=== PATIENT | male | born 1970 | race Caucasian/White ===

== ENCOUNTER 2023-06-20 08:33 | Outpatient (REF) | payer BC, SELFPAY ==
[2023-06-20 16:01] LABS: Cholesterol 380 mg/dL (<200); Glucose Fasting 85 mg/dL (60-99); HDL Cholesterol 38 mg/dL (>40); LDL Cholesterol Calculated 270 mg/dL (<100); Triglycerides 364 mg/dL (<150)
[2023-06-20 16:36] LABS: Estimated Average Glucose 108 mg/dL; Hemoglobin A1c % 5.4 % (<6.0)
== END 2023-06-20 08:34 | disposition home or self-care (01) ==
LOC: HO.CHCLDS 08:33
PROVIDERS: Visit Provider Internal Medicine
DX: I10 Essential (primary) hypertension (principal); R73.9 Hyperglycemia, unspecified
CPT/HCPCS: 36415; 80061; 82947; 83036

== ENCOUNTER 2024-07-09 08:50 | Outpatient (REF) | payer BC, SELFPAY ==
[2024-07-09 14:32] LABS: Basophils Absolute Auto 0.1 X10*3/uL (0.0-0.2); PLT CLUMP 1; Red Cell Distribution Width 13.2 % (11.0-16.0); SCAN SMEAR FLAG 1
[2024-07-09 14:34] LABS: Basophils Percent Auto 1.3 % (0-2); Eosinophils Absolute Auto 0.3 X10*3/uL (0.0-0.4); Eosinophils Percent Auto 4.6 % (0-4); Hematocrit 46.3 % (42.0-52.0); Hemoglobin 15.5 g/dl (14.0-18.0); Imm Gran Abs Auto 0.03 X10*3/uL (0.00-0.03); Imm Gran Pct Auto 0.4 % (0.0-0.4); Lymphocytes Absolute Auto 1.5 X10*3/uL (1.2-4.9); Lymphocytes Percent Auto 21.5 % (20-40); MANUAL DIFF FLAG SCAN; Mean Corpuscular HGB Conc 33.5 g/dl (31.0-36.0); Mean Corpuscular Hemoglobin 27.5 pg (27.0-33.0); Mean Corpuscular Volume 82.1 fL (80.0-98.0); Monocytes Absolute Auto 0.6 X10*3/uL (0.1-1.2); Monocytes Percent Auto 9.5 % (2-11); Neutrophils Absolute Auto 4.2 x10*3/uL (2.0-8.3); Neutrophils Percent Auto 62.7 % (45-73); Red Blood Count 5.64 X10*6/uL (4.60-5.80)
[2024-07-09 14:39] LABS: Mean Platelet Volume 9.9 fL (9.4-12.4); Platelet Count 239 X10*3/uL (160-400); White Blood Count 6.7 X10*3/uL (4.8-10.8)
[2024-07-09 14:44] LABS: Alanine Aminotransferase 21 U/L (0-40); Albumin Level 4.2 g/dL (3.5-5.0); Alkaline Phosphatase 66 U/L (39-117); Anion Gap 17 (12-20); Aspartate Amino Transferase 19 U/L (5-37); Bilirubin Total 0.5 mg/dL (0.0-1.0); Blood Urea Nitrogen 16 mg/dL (9-16); Calcium 9.6 mg/dL (8.4-10.2); Carbon Dioxide 23 mmol/L (22-29); Chloride 100 mmol/L (96-108); Cholesterol 488 mg/dL (<200); Estimated Glomerular Filt Rate > 60; Glucose Random 87 mg/dL (60-115); HDL Cholesterol 37 mg/dL (>40); Potassium 3.7 mmol/L (3.3-5.1); Sodium 136 mmol/L (135-145); Total Protein 7.4 g/dL (6.5-8.0); Triglycerides 718 mg/dL (<150)
[2024-07-09 15:00] LABS: TSH reflex Free T4 1.17 uIU/mL (0.32-4.0)
[2024-07-09 15:56] LABS: SLIDE REVIEW VERIFIED
[2024-07-10 07:25] LABS: HIV AB/AG Nonreactive (Nonreactive); HIV Num 1 0.04 S/CO (0.00-0.99); ~Hepatitis C Antibody Nonreactive (Nonreactive)
== END 2024-07-09 08:51 | disposition home or self-care (01) ==
LOC: HO.CHCLDS 08:50
PROVIDERS: Visit Provider Internal Medicine
DX: Z00.00 Encounter for general adult medical examination without abnormal findings (principal); Z11.4 Encounter for screening for human immunodeficiency virus [HIV]; E78.00 Pure hypercholesterolemia, unspecified
CPT/HCPCS: 36415; 80053; 80061; 84443; 85025; 86803; 87389

== ENCOUNTER 2025-10-20 10:12 | Outpatient (REF) | payer BC, SELFPAY ==
--- NOTE | ~2025-10-20 | XR_ITS ---
EXAMINATION: XR CHEST CLINICAL INFORMATION: pt w COPD excerbation , fever to r/o PNA COMPARISON: None available. TECHNIQUE: 2 views of the chest were obtained. FINDINGS: The cardiac, hilar, and mediastinal contours are normal. Lungs are diffusely hyperaerated with flattening of the hemidiaphragms. Lungs otherwise clear without focal opacification. There is no pneumothorax or pleural effusion. There is no focal osseous or soft tissue abnormality. Mild arthritic changes throughout the spine. XR/XR chest 2V IMPRESSION: 1. COPD without superimposed active disease. Electronically signed by: Mat Awad MD 10/20/2025 10:33 AM [facility]
--- OUTSIDE RECORDS SUMMARY | 2025-10-20 09:40 | XMS_ITS | Encounter Summary ---
Author Organization [employer] Address [address] [place] [address] [place] [address] Care Team Providers Care Bell Valet Name Role Phone Daryl Mayberry MD Primary Care Provider [phone] Reason for Visit * Reason Comments Cough Shortness of Breath Encounter Details Date Type Department Care Team ([facility] st Contact Info) Description 10/20/2025 9:40 AM EST Office Visit [facility] [address] [place] [phone] Keily Locke MD [address] [place] [address] Primary hypertension (Primary Dx); Decompensated COPD with exacerbation (chronic obstructive pulmonary disease) ([facility]) ([facility]); Decompensated COPD with exacerbation (chronic obstructive pulmonary disease) ([facility]) ([facility]); Moderate persistent asthma without complication; COPD exacerbation ([facility]) ([facility]) Social History Tobacco Use Types Packs/Day Years Used Date Smoking Tobacco: Former Cigarettes Smokeless Tobacco: Current Chew Tobacco Cessation:Ready to Q uit: Not Asked; Counseling Given: Not Answered Alcohol Use Standard Drinks/Week Comments Not Currently 0 (1 standard drink = 0.6 oz pur e alcohol) Depression Answer Date Recorded Patient Health Questionnaire-9 Score 15 07/17/2025 Patient Health Questionnaire-9 Score 15 07/17/2025 Last PHQ-9: Questionnaire Data Not on file 0 07/17/2025 Housing Stability Answer Date Recorded What is your housing situation today? I have maikel leyva 02/20/[address] you li ve. Do you have problems with any of the following? None of the above 02/20/2025 Food Insecurity Answer Date Recorded Within the past 12 months, y ou worried that your food would run out before you got money to buy more: Never True 02/20/2025 Within the past 12 months,th e food you bought just didn't last and you didn't have enough money to get more: Never True 11/2024 Transportation Answer Date Recorded In the past 12 months, has l ack of transportation kept you from medical appts, meetings, work or from getting things needed for daily living? No 02/20/2025 Utilities Answer Date Recorded In the past 12 months, has t he electric, gas, oil or water company threatened to shut off services in your home? No 02/20/2025 Depression Answer Date Recorded Patient Health Questionnaire-2 Score 5 07/17/2025 Internet Access Answer Date Recorded Internet Access Q1 Yes 02/20/2025 Internet Access Q2 Not on file 02/20/2025 Sex and Gender Information Value Date Recorded Sex Assigned at Male 08/21/2022 10:16 AM EDT Legal Sex Male 10:16 AM EDT Gender Identity Male 08/21/2022 10:16 AM EDT Sexual Orientation Straight 08/21/2022 10 :16 AM EDT documented as of this encounter Last Filed Vital Signs Vital Sign Reading Time Taken Comments Blood Pressure 161/95 10/20/2025 9:15 AM EST Pulse 86 10/20/2025 9:15 AM EST Temperature 36.6 C (97.8 F) 10/20/2025 9:15 AM EST Respiratory Rate 20 10/20/2025 9:15 AM EST Oxygen Saturation 95% 10/20/2025 9:15 AM EST Inhaled Oxygen Concentration - - Weight 120 kg (264 lb 3.2 oz) 10/20/2025 9:15 AM EST Height 180.3 cm (5' 11 ) 10/20/2025 9:15 AM EST Body Mass Index 36.85 10/20/2025 9:15 AM EST documented in this encounter Progress Notes * Keily Hyman MD - 10/20/2025 9:40 AM EST Subjective Patient ID: Eduardo Pedroza is a 55 y.o. male who presents for Cough and Shortness of Breath. HPI 55 y o M w PMX of Hypertension, Obesity,COPD/Asthma Comes to [facility] reporting SOB,wheezing for 1 day - Baseline lung function reported as good for past 1-2 months prior to current episode - Chronic cough with usual clear or white sputum; change to brown sputum starting October 19, 2025(Sunday night) so 1 day ago - Wheezing started several days prior to encounter -recalls had 101??F; fever also present last night; denies fever during daytime yesterday and this morning - Chills reported with fever - Shortness of breath, wheezing - Chest pain associated with coughing only - pt using Nebulizer (DuoNeb) PRN albuterol pump used outside as needed+ Combivent inhaler prescribed for 4 times daily, but only used twice daily due to cost concerns - No tobacco use for years Review of Systems -wheezing ,SOB ,change in sputum, fever Objective BP (!) 161/95 (BP Location: Left arm, Patient Position: Sitting, BP Cuff Size: Large adult long) Pulse 86 Temp 97.8 ??F (36.6 ??C) (Oral) Resp 20 Ht 5' 11 (1.803 m) Wt 264 lb 3.2 oz (120 kg) SpO2 95% BMI 36.85 kg/m?? Physical Exam Constitutional: General: He is not in acute distress. Appearance: Normal appearance. He is obese. He is not ill-appearing, toxic- appearing or diaphoretic. HENT: Head: Normocephalic. Mouth/Throat: Mouth: Mucous membranes are moist. Pharynx: No oropharyngeal exudate or posterior oropharyngeal erythema. Eyes: Pupils: Pupils are equal, round, and reactive to light. Cardiovascular: Rate and Rhythm: Normal rate and regular rhythm. Pulmonary: Effort: Pulmonary effort is normal. Breath sounds: No wheezing or rhonchi. Abdominal: Palpations: Abdomen is soft. Musculoskeletal: Right lower leg: No edema. Left lower leg: No edema. Neurological: General: No focal deficit present. Mental Status: He is alert. Assessment/Plan Problem List Items Addressed This Visit COPD exacerbation ([facility]) ([facility]) Symptoms seems from decompensated COPD with exacerbation likely triggered by viral infection. Here Influenza nd COVID19 test: negative -chest x-ray ordered - Prescribed azithromycin 500 mg x1 then 250 mg daily x 5 days for COPD exacerbation and antiinflammatory component -prednisone 40 mg for 5 days) -possible pt not on easier antimuscarinic regimen as umeclidinium because of cost ? -Recommended use of Combivent inhaler as prescribed, 4 times daily.pt taking BID - Continue DuoNeb nebulizations and albuterol as needed. -Provided information # and previous order done for PFT ; instructed to call and schedule apt - Advised to monitor for worsening symptoms, higher fevers, or increased dyspnea and to seek care if these occur. - Advised to discuss pulmonary referral with primary care provider if exacerbations persist Relevant Medications predniSONE (Deltasone) 20 MG tablet Primary hypertension - Primary BP to take lisinopril and HDCTZ when arrives at home ,not took today BP meds -F w PCP BP Other Visit Diagnoses Decompensated COPD with exacerbation (chronic obstructive pulmonary disease) ([facility]) ([facility]) Relevant Medications azithromycin (Zithromax) 250 MG tablet predniSONE (Deltasone) 20 MG tablet Other Relevant Orders Influenza A (ID NOW Rapid Molecular) (Completed) Influenza B (ID NOW Rapid Molecular) (Completed) POCT COVID-19 Ag Rangel ID NOW (Completed) XR Chest 2 Views (Completed) Decompensated COPD with exacerbation (chronic obstructive pulmonary disease) ([facility]) ([facility]) Standing order for prednisone in case of an exacerbation. Relevant Medications azithromycin (Zithromax) 250 MG tablet predniSONE (Deltasone) 20 MG tablet Other Relevant Orders Influenza A (ID NOW Rapid Molecular) (Completed) Influenza B (ID NOW Rapid Molecular) (Completed) POCT COVID-19 Ag Rangel ID NOW (Completed) XR Chest 2 Views (Completed) Moderate persistent asthma without complication No change in medication Contact the office as needed Relevant Medications azithromycin (Zithromax) 250 MG tablet predniSONE (Deltasone) 20 MG tablet This note was drafted using Ambient (AI) technology. The patient/patient's guardian has been informed and has consented to the use of this technology: Yes documented in this encounter Miscellaneous Notes * Assessment & Plan Note - Keily Hyman MD - 10/20/2025 12:35 PM ESTAssociated Problem(s): COPD exacerbation (CMS/HCC) ([facility]) Symptoms seems from decompensated COPD with exacerbation likely triggered by viral infection. Here Influenza nd COVID19 test: negative -chest x-ray ordered - Prescribed azithromycin 500 mg x1 then 250 mg daily x 5 days for COPD exacerbation and antiinflammatory component -prednisone 40 mg for 5 days) -possible pt not on easier antimuscarinic regimen as umeclidinium because of cost ? -Recommended use of Combivent inhaler as prescribed, 4 times daily.pt taking BID - Continue DuoNeb nebulizations and albuterol as needed. -Provided information # and previous order done for PFT ; instructed to call and schedule apt - Advised to monitor for worsening symptoms, higher fevers, or increased dyspnea and to seek care if these occur. - Advised to discuss pulmonary referral with primary care provider if exacerbations persist * Assessment & Plan Note - Keily Hyman MD - 10/20/2025 12:34 PM ESTAssociated Problem(s): Primary hypertension BP to take lisinopril and HDCTZ when arrives at home ,not took today BP meds -F w PCP BP documented in this encounter Plan of Treatment Not on file documented as of this encounter Procedures Procedure Name Priority Date/Time Associated Diagnosis Comments XR CHEST 2 VIEWS Routine 10/20/2025 10:2 8 AM EST Decompensated COPD with exacerbation (chronic obstructive pulmonary disease) ([facility]) ([facility]) POCT INFLUENZA B (ID NOW RAPID MOLECULAR) Routine 10/20/2025 10:03 AM EST Decompensated COPD with exacerbation (chronic obstructive pulmonary disease) ([facility]) ([facility]) POCT INFLUENZA A (ID NOW RAPID MOLECULAR) Routine 10/20/2025 10:03 AM EST Decompensated COPD with exacerbation (chronic obstructive pulmonary disease) ([facility]) ([facility]) POCT COVID-19 AG RANGEL ID NOW Routine 10/20/2025 10:03 AM EST Decompensated COPD with exacerbation (chronic obstructive pulmonary disease) ([facility]) ([facility]) documented in this encounter Results * XR Chest 2 Views (10/20/2025 10:28 AM EST) Anatomical Region Laterality Modality Chest Radiographic Jonelle ging 10/20/2025 10:2 8 AM EST Narrative 10/20/2025 10:35 AM EST [address] [address] XRay Report Signed Patient: Eduardo Pedroza MR#: [id number] : 1970 Acct:[id number] Age/Sex: 55 / M ADM Date: 10/20/25 Loc: HO.HHCX Attending Dr: Keily Hyamn MD Ordering Physician: Keily Locke MD Date of Service: 10/20/25 Procedure(s): XR chest 2V Accession Number(s): [id number] cc: Keily Locke MD Reason for Exam: pt w COPD excerbation , fever to r/o PNA EXAMINATION: XR CHEST CLINICAL INFORMATION: pt w COPD excerbation , fever to r/o PNA COMPARISON: None available. TECHNIQUE: 2 views of the chest were obtained. FINDINGS: The cardiac, hilar, and mediastinal contours are normal. Lungs are diffusely hyperaerated with flattening of the hemidiaphragms. Lungs otherwise clear without focal opacification. There is no pneumothorax or pleural effusion. There is no focal osseous or soft tissue abnormality. Mild arthritic changes throughout the spine. XR/XR chest 2V IMPRESSION: 1. COPD without superimposed active disease. Electronically signed by: Mat Awad MD 10/20/2025 10:33 AM EST Dictated By: Mat Awad MD Signed By: <Electronically signed by Mat Awad MD in OV> 10/20/25 1033 DD/ 1028 TD/TT: 10/20/25 1028 Stretcher Helper: Procedure Note Donotuseinterpreter, Image - 10/20/[address] [address] XRay Report Signed Patient: Eduardo Pedroza TMR#: [id number] : 1970Acct:[id number] Age/Sex: 55 / MADM Date: 10/20/25 Loc: HO.HHCX Attending Dr: Keily Hyman MD Ordering Physician: Keily Locke MD Date of Service: 10/20/25 Procedure(s): XR chest 2V Accession Number(s): [id number] cc: Keily Locke MD Reason for Exam: pt w COPD excerbation , fever to r/o PNA EXAMINATION: XR CHEST CLINICAL INFORMATION: pt w COPD excerbation , fever to r/o PNA COMPARISON: None available. TECHNIQUE: 2 views of the chest were obtained. FINDINGS: The cardiac, hilar, and mediastinal contours are normal. Lungs are diffusely hyperaerated with flattening of the hemidiaphragms. Lungs otherwise clear without focal opacification. There is no pneumothorax or pleural effusion. There is no focal osseous or soft tissue abnormality. Mild arthritic changes throughout the spine. XR/XR chest 2V IMPRESSION: 1. COPD without superimposed active disease. Electronically signed by: Mat Awad MD 10/20/2025 10:33 AM EST Dictated By: Mat Awad MD Signed By: <Electronically signed by Mat Awad MD in OV> 10/20/25 1033 DD/ 1028 TD/TT: 10/20/25 1028 Stretcher Helper: us Keily Hyman MD IMG XR PROCEDURES Final Result * POCT COVID-19 Ag Rangel ID NOW (10/20/2025 10:03 AM EST) Coronavirus Antigen PCR Negative Negative, Indeterminate, None Detected, Trace, 3+, Specimen unsatisfactory for evaluation, Weakly Positive, 1+, 2+ Swab 10/20/2025 10:0 3 AM EST Keily Hyman MD POINT OF CARE ANGUS T ENTER/EDIT ORDERABLES Final Result * Influenza B (ID NOW Rapid Molecular) (10/20/2025 10:03 AM EST) Influenza B Negative Negative, Indeterminate [facility] Swab 10/20/2025 10:0 3 AM EST Keily Hyman MD POINT OF CARE ANGUS T ENTER/EDIT ORDERABLES Final Result Performing Organization Address [facility]/ZIP Co de Phone Number [facility] [address] [place] [phone] * Influenza A (ID NOW Rapid Molecular) (10/20/2025 10:03 AM EST) Influenza A Negative Negative, Indeterminate [facility] Swab 10/20/2025 10:0 3 AM EST Keily Hyman MD POINT OF CARE ANGUS T ENTER/EDIT ORDERABLES Final Result Performing Organization Address [facility] Co de Phone Number [facility] [address] [place] [phone] documented in this encounter Visit Diagnoses Diagnosis Primary hypertension- Primary Unspecified essential hypertension Decompensated COPD with exacerbation (chronic obstructive pulmonary disease) ([facility]/HCC) (HCC) Moderate persistent asthma without complication COPD exacerbation ([facility]) ([facility]) Obstructive chronic bronchitis with exacerbation documented in this encounter Additional Health Concerns Assessment Noted Time PHQ-9 Depression Total Score: 15 025 9:43 AM EDT documented as of this encounter Care Teams Bell Valet Relationship Specialty Start Date End Date Daryl Mayberry MD [address] [place] [phone] PCP - General Internal Medicine 10/22/18 documented as of this encounter
--- OUTSIDE RECORDS SUMMARY | 2025-10-20 13:30 | XMS_ITS | Encounter Summary ---
Author Organization [employer] Address [address] [facility] 7 [place] [address] Care Team Providers Care Heavy Forger Name Role Phone Daryl Mayberry MD Primary Care Provider [phone] Reason for Visit * Reason Comments Med Refill Encounter Details Date Type Department Care Team ([facility] st Contact Info) Description 09/09/2025 Refill [facility] [address] [place], [place] [phone] Daryl Mayberry MD [address] [place] [address] Moderate persistent asthma without complication Social History Tobacco Use Types Packs/Day Years Used Date Smoking Tobacco: Former Cigarettes Smokeless Tobacco: Current Chew Alcohol Use Standard Drinks/Week Comments Not Currently [...] AM EDT documented as of this encounter Plan of Treatment Not on file documented as of this encounter Visit Diagnoses Diagnosis Moderate persistent asthma without complication documented in this encounter Additional Health Concerns Assessment Noted Time PHQ-9 Depression Total Score: 15 025 9:43 AM EDT documented as of this encounter Care Teams Heavy Forger Relationship Specialty Start Date End Date Daryl Mayberry MD [address] [place] [phone] PCP - General Internal Medicine 10/22/18 documented as of this encounter
--- OUTSIDE RECORDS SUMMARY | 2025-10-20 13:30 | XMS_ITS | Encounter Summary ---
Author Organization [employer] Address [address] [facility] [address] [place] [address] Care Team Providers Care Video Tape Duplicator Name Role Phone Daryl Mayberry MD Primary Care Provider [phone] Encounter Details Date Type Department Care Team (Latest Contact Info) Description 10/20/2025 Travel Social History Tobacco Use Types Packs/Day Years [...] documented as of this encounter Visit Diagnoses Not on filedocumented in this encounter Additional Health Concerns Assessment Noted Time PHQ-9 Depression Total Score: 15 025 9:43 AM EDT documented as of this encounter Care Teams Video Tape Duplicator Relationship Specialty Start Date End Date Daryl Mayberry MD [address] [place] [phone] PCP - General Internal Medicine 10/22/18 documented as of this encounter
--- OUTSIDE RECORDS SUMMARY | 2025-10-20 13:30 | XMS_ITS | Clinical Summary ---
Author Organization [employer] Address [address] [facility] 7[address] [place] [address] Care Team Providers Care Fiscal Agent Name Role Phone Daryl Mayberry MD Primary Care Provider [phone] Allergies Active Allergy Reactions Criticality Noted Date Comments Cat Dander Itching 05/28/2023 Marijuana (Cannabis Sativa) Itching 05/28/20 23 Medications Diclofenac Sodium 1 % gelIndications: Pain of right great toe To apply to the affected area 3 times a day 100 g 1 023 Active Additional Information Patient not taking.Reported on 10/20/2025 econazole nitrate 1 % creamIndication s:Intertrigo of web of toe APPLY TO THE AFFECTED AREA(S) EVERY MORNING 30 g 023 Active Additional Information Patient not taking.Reported on 10/20/2025 atorvastatin (Lipitor) 40 MG tabletIndicatio ns:Hypercholest erolemia Take 1 tablet (40 mg) by mouth Once per day. 30 tablet 11 024 Active Additional Information Patient not taking.Reported on 10/20/2025 guaiFENesin (Mucinex) 600 MG 12 hr tabletIndicatio ns:Decompensate d COPD with exacerbation (chronic obstructive pulmonary disease) ([facility]/HCC) (HCC) Take 2 tablets (1,200 mg) by mouth 2 times daily. Do not crush, chew, or split. 120 tablet 11 025 2025 Active hydroCHLOROthia zide (HYDRODiuril) 25 MG tabletIndicatio ns:Essential hypertension TAKE ONE TABLET EVERY MORNING 90 tablet 5 025 Active albuterol 1.25 MG/3ML nebulizer solutionIndicat ions:Moderate persistent asthma without complication Take 6 mL (2.5 mg) by nebulization every 6 (six) hours if needed for wheezing. 75 mL 3 025 2025 Active Magnesium 400 MG capsuleIndicati ons:Muscle cramps TAKE 1 CAPSULE BY MOUTH EVERY DAY 30 capsule 2 025 Active magnesium oxide (Mag-Ox) 400 MG tablet Take 1 tablet by mouth Once per day. Active HYDROCHLOROTHIA ZIDE PO Take 12.5 mg by mouth. Active lisinopril 5 MG tablet Take 5 mg by mouth. 019 Active albuterol 108 (90 Base) MCG/ACT inhaler Inhale 2 puffs every 6 (six) hours if needed. Active ipratropium-alb uterol (Duo-Neb) 0.5-2.5 mg/3 mL nebulizer solution 4 times daily. Activ e cyclobenzaprine (Flexeril) 10 MG tablet TAKE 1 TABLET BY MOUTH 3 TIMES A DAY,X10 DAYS NEEDED FOR SPASM 024 Active ipratropium-alb uterol (Combivent Respimat) 20-100 MCG/ACT inhalerIndicati ons:Cough in adult Inhale 1 puff in the morning, at noon, in the evening, and at bedtime. 4 g 11 025 2025 Active lisinopril 5 MG tabletIndicatio ns:Essential hypertension TAKE ONE TABLET EVERY MORNING 30 tablet 5 025 Active albuterol (Ventolin HFA) 108 (90 Base) MCG/ACT inhalerIndicati ons:Moderate persistent asthma without complication INHALE 2 PUFFS BY MOUTH EVERY 4-6 HOURS NEEDED 18 g 1 025 Active azithromycin (Zithromax) 250 MG tabletIndicatio ns:Decompensate d COPD with exacerbation (chronic obstructive pulmonary disease) ([facility]) ([facility]) 500 mg on day 1, 250 mg day 2 through 5 6 tablet 5 11:14 AM EST 025 Active predniSONE (Deltasone) 20 MG tabletIndicatio ns:Decompensate d COPD with exacerbation (chronic obstructive pulmonary disease) ([facility]) ([facility]),Moderate persistent asthma without complication 40 mg once a day x 5 days 10 tablet 11:14 AM EST Active predniSONE (Deltasone) 20 MG tabletIndicatio ns:Decompensate d COPD with exacerbation (chronic obstructive pulmonary disease) ([facility]) ([facility]),Moderate persistent asthma without complication 40 mg once a day x 5 days 10 tablet 025 2024 Discontinued(R eorder (will not trigger notification to Pharmacy)) azithromycin (Zithromax) 250 MG tabletIndicatio ns:Decompensate d COPD with exacerbation (chronic obstructive pulmonary disease) ([facility]) ([facility]) 500 mg on day 1, 250 mg day 2 through 5 6 tablet 025 2024 Discontinued(R eorder (will not trigger notification to Pharmacy)) albuterol (Ventolin HFA) 108 (90 Base) MCG/ACT inhalerIndicati ons:Moderate persistent asthma without complication INHALE TWO PUFFS BY MOUTH EVERY 4 TO 6 HOURS NEEDED 18 g 1 025 2024 Discontinued Active Problems Problem Noted Date Diagnosed Date Subungual hematoma of right foot 02/20/2025 Class 2 obesity 05/28/2023 Primary hypertension 05/28/2023 Assessment & Plan (10/20/2025 12:34 PM EST): BP to take lisinopril and HDCTZ when arrives at home ,not took today BP meds -F w PCP BP COPD exacerbation ([facility]) 01/28/2013 Assessment & Plan (10/20/2025 12:35 PM EST): Symptoms seems from decompensated COPD with exacerbation [...] with primary care provider if exacerbations persist Chronic obstructive asthma ([facility]) 01/28/2013 Encounters Date Type Department Care Team Description 10/20/2025 9:40 AM EST Office Visit [facility] [address] [place] [phone] Keily Locke MD Primary hypertension (Primary Dx); Decompensated COPD with exacerbation (chronic obstructive pulmonary disease) ([facility]HCC) ([facility]); Decompensated COPD with exacerbation (chronic obstructive pulmonary disease) ([facility]/HCC) ([facility]); Moderate persistent asthma without complication; COPD exacerbation ([facility]) ([facility]) 10/20/2025 Travel 09/22/2025 Refill [facility] [address] [place] [address] Daryl Mayberry MD Moderate persistent asthma without complication 09/09/2025 Refill [facility] [address] [place] [address] Daryl Mayberry MD Moderate persistent asthma without complication 08/05/2025 Telephone [facility] [address] [place] [phone] Daryl Mayberry MD Nurse Triage 08/05/2025 Refill [facility] [address] [place] [address] Daryl Mabyerry MD Moderate persistent asthma without complication 08/04/2025 Refill [facility] [address] [place] [address] Daryl Mayberry MD Moderate persistent asthma without complication 07/27/2025 Refill [facility] [address] [place] [address] Daryl Mayberry MD Moderate persistent asthma without complication 07/23/2025 Refill [facility] [address] [place] [address] Daryl Mayberry MD Essential hypertension from Last 3 Months Immunizations Immunization Administration Dates Next Due Influenza, IIV3, injectable 07/06/2011 Tdap 04/11/2016 Family History Medical History Relation Name Comments Emphysema Brother smoker Brother Lung cancer Father Relation Name Status Comments Brother Father Social History Tobacco Use Types Packs/Day Years [...] Orientation Straight 08/21/2022 10 :16 AM EDT Last Filed Vital Signs Vital Sign Reading [...] Mass Index 36.85 10/20/2025 9:15 AM EST Plan of Treatment Health Maintenance Due Date Last Done Comments CT Colonography 1968 Colonoscopy 1970 FIT 1970 Sigmoidoscopy 1970 Hepatitis B Vaccines (1 of 3 - 19+ 3-dose series) 1987 Pneumococcal Vaccine: 50+ Years (1 of 2 - PCV) 1987 RSV Patients and Patients Aged 60 years or older (1 - Risk 50-74 years 1-dose series) 2018 Zoster Vaccines (1 of 2) 2018 COVID-19 Vaccine (1 - 2024-2 6 season) 2025 Influenza Vaccine (#1) 2025 07/06/2011 FOBT 06/30/2025 06/30/2024 Depression Monitoring 01/14/2026 07/17/2025 , 07/17/2025 SDOH Screening 02/20/2026 02/20/2025 DTaP/Tdap/Td Vaccines (2 - T d or Tdap) 04/11/2026 04/11/2016 Alcohol/Substance Use Screening 07/17/2026 07/17/2025 Disability Screening 07/17/2026 07/17/2025 Tobacco Screening 10/20/2026 10/20/2025 Colorectal Cancer Screening 06/30/2027 FIT DNA/Cologuard 06/30/2027 06/30/2024 Lipid Panel 07/09/2029 07/09/2024, 06/20/2023 HIV Screening Completed 07/09/2024 Hepatitis C Screening Completed 07/09/2024 HIB Vaccines Aged Out No longer eligi ble based on patient's age to complete this topic HPV Vaccines Aged Out No longer eligi ble based on patient's age to complete this topic Hepatitis A Vaccines Aged Out No long er eligible based on patient's age to complete this topic IPV Vaccines Aged Out No longer eligi ble based on patient's age to complete this topic Meningococcal B Vaccine Aged Out No l onger eligible based on patient's age to complete this topic Meningococcal Vaccine Aged Out No dwight guru eligible based on patient's age to complete this topic RSV under 20 months Aged Out No longe r eligible based on patient's age to complete this topic Rotavirus Vaccines Aged Out No longer eligible based on patient's age to complete this topic Procedures Procedure Name Priority Date/Time Associated Diagnosis Comments XR CHEST 2 VIEWS Routine 10/20/2025 10:2 8 AM EST Decompensated COPD with exacerbation (chronic obstructive pulmonary disease) ([facility]/HCC) (HCC) POCT COVID-19 AG RANGEL ID NOW Routine 10/20/2025 10:03 AM EST Decompensated COPD with exacerbation (chronic obstructive pulmonary disease) (CMS/HCC) (HCC) POCT INFLUENZA B (ID NOW RAPID MOLECULAR) Routine 10/20/2025 10:03 AM EST Decompensated COPD with exacerbation (chronic obstructive pulmonary disease) (CMS/HCC) (HCC) POCT INFLUENZA A (ID NOW RAPID MOLECULAR) Routine 10/20/2025 10:03 AM EST Decompensated COPD with exacerbation (chronic obstructive pulmonary disease) (CMS/HCC) (HCC) HEPATITIS C AB W/REFL TO HCV RNA, QN, PCR Routine 07/09/2024 8:51 AM EDT Annual physical exam HIV 1/2 ANTIGEN/ANTIBODY, FOURTH GENERATION W/RFL Routine 07/09/2024 8:51 AM EDT Annual physical exam LIPID PANEL, STANDARD Routine 07/09/2024 8:51 AM EDT Annual physical exam Hypercholesterolemia LAB COLOGUARD COLON CANCER SCREEN Routine 06/30/2024 4:30 AM EDT Annual physical exam Screening for colon cancer from Last 3 Months or Most Recently Relevant to Health Maintenance Results * XR Chest 2 Views (10/20/2025 10:28 AM EST) Anatomical Region Laterality Modality Chest Radiographic Jonelle ging 10/20/2025 10:2 8 AM EST Narrative 10/20/2025 10:35 AM EST [address] [address] XRay Report Signed Patient: Eduardo Pedroza MR#: [id number] : 1970 Acct:[id number] Age/Sex: 55 / M ADM Date: 10/20/25 Loc: .HHCX Attending Dr: Keily Hyman MD Ordering Physician: Keily Locke MD Date of Service: 10/20/25 Procedure(s): XR chest 2V Accession Number(s): [id number] cc: Keily Locke MD Reason for Exam: [...] 10/20/25 1033 DD/ 1028 TD/TT: 10/20/25 1028 Caramel Coloring Operator: Procedure Note Donotuseinterpreter, Image - 10/20/[address] [address] XRay Report Signed Patient: Eduardo Pedroza TMR#: [id number] : 1970Acct:[id number] Age/Sex: 55 / MADM Date: 10/20/25 Loc: HO.HHCX Attending Dr: Keily Hyman MD Ordering Physician: Keily Locke MD Date of Service: 10/20/25 Procedure(s): XR chest 2V Accession Number(s): [id number] cc: Keily Locke MD Reason for Exam: [...] 10/20/25 1033 DD/ 1028 TD/TT: 10/20/25 1028 Caramel Coloring Operator: us Keily Hyman MD IMG XR PROCEDURES Final Result * Influenza B (ID NOW Rapid Molecular) (10/20/2025 10:03 AM EST) Influenza B Negative Negative, Indeterminate [facility] Swab 10/20/2025 10:0 3 AM EST us Keily Hyman MD POINT OF CARE ANGUS T ENTER/EDIT ORDERABLES Final Result [facility] [address] [place] [phone] * Influenza A (ID NOW Rapid Molecular) (10/20/2025 10:03 AM EST) [facility] Influenza A Negative Negative, Indeterminate [facility] Swab 10/20/2025 10:0 3 AM EST Keily Hyman MD POINT OF CARE ANGUS T ENTER/EDIT ORDERABLES Final Result Performing Organization Address [facility] Co de Phone Number [facility] [address] [place] [phone] * POCT COVID-19 Ag Rangel ID NOW (10/20/2025 10:03 AM EST) [facility] Coronavirus Antigen PCR Negative Negative, Indeterminate, None Detected, Trace, 3+, Specimen unsatisfactory for evaluation, Weakly Positive, 1+, 2+ Swab 10/20/2025 10:0 3 AM EST Keily Hyman MD POINT OF CARE ANGUS T ENTER/EDIT ORDERABLES Final Result * Hepatitis C Antibody with Reflex to HCV, RNA, Quantitative, Real-Time PCR (07/09/2024 8:51 AM EDT) [facility] Hepatitis C Antibody Nonreactive Nonreactive [facility] Comment:Antibodies to HCV no t detected; does not exclude early acuteHCV infection. Blood Venous blood specimen / Unknown 07/09/2024 8:51 AM EDT 07/09/2024 2:13 PM EDT us Daryl Mayberry MD LAB BLOOD ORDERABLES Final Result Performing Organization Address [facility] Co de Phone Number [facility] [address] [place] [phone] * HIV-1/2 Antigen and Antibodies, Fourth Generation, with Reflexes (07/09/2024 8:51 AM EDT) [facility] HIV AB/AG Nonreactive Nonreactive [facility] Comment:HIV-1 p24 Ag and/or HIV-1/HIV-2 Ab not detected.A test result that is nonreactive does not exclude thepossibility of exposure to or infection with HIV-1 and/orHIV-2. Nonreactive results in this assay for individualswith prior exposure to HIV-1 and/or HIV-2 may be due toantigen and antibody levels that are below the limit ofdetection of this assay.The [email or web address] HIV Ag/Ab Combo assay result andsupplemental assay results should be interpreted inconjunction with the patient's clinical presentation,history and other laboratory results. If the results areinconsistent with clinical evidence, additional testing issuggested to confirm the result. Blood Venous blood specimen / Unknown 07/09/2024 8:51 AM EDT 07/09/2024 2:13 PM EDT us Daryl Mayberry MD LAB BLOOD ORDERABLES Final Result [facility] [address] [place] [phone] * (ABNORMAL) Lipid Panel, Standard (07/09/2024 8:51 AM EDT) Pathologist [facility] Triglycerides 718(H) <150 mg/dL [facility] Comment:Desirable Triglyceri de: less than 150 mg/dLBorderline High Triglyceride 150-199 mg/dLHigh Triglyceride: 200-499 mg/dLVery High Triglyceride: greater than or equal to 5OO mg/dL Cholesterol 488(H) <200 mg/dL [facility] Comment:Desirable Cholestero l: less than 200 mg/dLBorderline High Cholesterol: 200-239 mg/dLHigh Cholesterol: greater than 239 mg/dL LDL Cholesterol Calculated TNP <100 mg/dL [facility] Comment:Unable to calculate the LDL. The formula of Friedwald,Vega, and Jade is only valid if the triglycerides areless than 400 mg/dl. HDL Cholesterol 37(L) >40 mg/dL [facility] Comment:Desirable HDL: great er than 40 mg/dL Note: This HDL assay may give artificially low results in patients with liver disease. Blood Venous blood specimen / Unknown 07/09/2024 8:51 AM EDT 07/09/2024 2:13 PM EDT Daryl Mayberry MD LAB BLOOD ORDERABLES Final Result [facility] [address] [place] [phone] * Cologuard?? colon cancer screening (06/30/2024 4:30 AM EDT) Cologuard Result Negative Negative 07/04/20 6:00 PM EDT [employer] (CLIA #:[id number]) Comment: NEGATIVE TEST RESULT. A negative Cologuard result indicates a low likelihood that a colorectal cancer (CRC) or advanced adenoma (adenomatous polyps with more advanced pre-malignant features) is present. The chance that a person with a negative Cologuard test has a colorectal cancer is less than 1 in 1500 (negative predictive value >99.9%) or has an advanced adenoma is less than 5.3% (negative predictive value 94.7%). These data are based on a prospective cross-sectional study of 10,000 individuals at average risk for colorectal cancer who were screened with both Cologuard and colonoscopy. (Artis Humphries et al, N Engl J Med 2014;370(14):7174-2202) The normal value (reference range) for this assay is negative. COLOGUARD RE-SCREENING RECOMMENDATION: Periodic colorectal cancer screening is an important part of preventive healthcare for asymptomatic individuals at average risk for colorectal cancer. Following a negative Cologuard result, the [place] [employer] and U.S. Multi-Society Task Force screening guidelines recommend a Cologuard re-screening interval of 3 years. References: [place] [employer] Guideline for Colorectal Cancer Screening: https://www.cancer.org/cancer/nruxi-vukato-fsookx/haxkmqjbf-jsxxeuqdy-npqqysv/ac s-rec ommendations.html.; Bobo ADAN, Clifton HENAO, Tavo LEUNG, Colorectal Cancer Screening: Recommendations for Physicians and Patients from the U.S. Multi-Society Task Force on Colorectal Cancer Screening , Am J Gastroenterology 2017; 112:8060-5265. TEST DESCRIPTION: Composite algorithmic analysis of stool DNA-biomarkers with hemoglobin immunoassay. Quantitative values of individual biomarkers are not reportable and are not associated with individual biomarker result reference ranges. Cologuard is intended for colorectal cancer screening of adults of either sex, 45 years or older, who are at average-risk for colorectal cancer (CRC). Cologuard has been approved for use by the U.S. FDA. The performance of Cologuard was established in a cross sectional study of average-risk adults aged 50-84. Cologuard performance in patients ages 45 to 49 years was estimated by sub-group analysis of near-age groups. Colonoscopies performed for a positive result may find as the most clinically significant lesion: colorectal cancer [4.0%], advanced adenoma (including sessile serrated polyps greater than or equal to 1cm diameter) [20%] or non- advanced adenoma [31%]; or no colorectal neoplasia [45%]. These estimates are derived from a prospective cross-sectional screening study of 10,000 individuals at average risk for colorectal cancer who were screened with both Cologuard and colonoscopy. (Artis Humphries et al, N Engl J Med 2014;370(14):6123-2032.) Cologuard may produce a false negative or false positive result (no colorectal cancer or precancerous polyp present at colonoscopy follow up). A negative Cologuard test result does not guarantee the absence of CRC or advanced adenoma (pre-cancer). The current Cologuard screening interval is every 3 years. ([place] [employer] and U.S. Multi-Society Task Force). Cologuard performance data in a 10,000 patient pivotal study using colonoscopy as the reference method can be accessed at the following location: www.[employer]/results. Additional description of the Cologuard test process, warnings and precautions can be found at www.[employer].fmrd.com. Stool specimen (specimen) 06/30/2024 4:30 AM EDT 07/02/2024 3:12 PM EDT Daryl Mayberry MD LAB MOLECULAR DIAGNOSTICS O RDERABLES Final Result [employer] (CLIA #:[id number]) [place] [address], [place] [phone] from Last 3 Months or Most Recently Relevant to Health Maintenance Insurance PPO Care Teams Fiscal Agent Relationship Specialty Start Date End Date Daryl Mayberry MD [address] [place], [place] [address] [address] PCP - General Internal Medicine 10/22/18
--- OUTSIDE RECORDS SUMMARY | 2025-10-20 13:30 | XMS_ITS | Encounter Summary ---
Author Organization [employer] Address [address] [place] [address] [address] [place] [address] Care Team Providers Care Resistor Winder Name Role Phone Daryl Mayberry MD Primary Care Provider [phone] Encounter Details Date Type Department Care Team ([facility] st Contact Info) Description 07/09/2024 Orders Only [facility] [address] [place], [place] [phone] Daryl Mayberry MD [address] [place] [address] Social History Tobacco Use Types Packs/Day Years Used Date Smoking Tobacco: Former Cigarettes Smokeless Tobacco: Current Chew Alcohol Use Standard Drinks/Week Comments Not Currently 0 (1 standard drink = 0.6 oz pur e alcohol) Depression Answer Date Recorded Patient Health Questionnaire-9 Score 18 06/20/2023 Housing Stability Answer Date Recorded What is your housing situation today? I have maikel leyva 08/27/[address] you li ve. Do you have problems with any of the following? None of the above 08/27/2023 Food Insecurity Answer Date Recorded Within the past 12 months, y ou worried that your food would run out before you got money to buy more: Never True 08/27/2023 Within the past 12 months,th e food you bought just didn't last and you didn't have enough money to get more: Never True 03/2023 Transportation Answer Date Recorded In the past 12 months, has l ack of transportation kept you from medical appts, meetings, work or from getting things needed for daily living? No 08/27/2023 Utilities Answer Date Recorded In the past 12 months, has t he electric, gas, oil or water company threatened to shut off services in your home? No 08/27/2023 Depression Answer Date Recorded Patient Health Questionnaire-2 Score 5 06/20/2023 Sex and Gender Information Value Date Recorded [...] Assessment Noted Time PHQ-9 Depression Total Score: 18 023 11:12 AM EDT documented as of this encounter Care Teams Resistor Winder Relationship Specialty Start Date End Date Daryl Mayberry MD [address] [place] [phone] PCP - General Internal Medicine 10/22/18 documented as of this encounter
--- OUTSIDE RECORDS SUMMARY | 2025-10-20 13:31 | XMS_ITS | Encounter Summary ---
Author Organization [employer] Address [address] [place] [address] [address] [place] [address] Care Team Providers Care Asphalt Mixer Name Role Phone Daryl Mayberry MD Primary Care Provider [phone]- [phone] Reason for Visit * Reason Comments Med Refill Encounter Details Date Type Department Care Team (Late st Contact Info) Description 04/08/2023 Refill [facility] [address] [place] [address] Daryl Mayberry MD [address] [place] [address] Moderate persistent asthma without complication Social History Tobacco Use Types Packs/Day Years Used Date Smoking Tobacco: Never Assessed Sex and Gender Information Value Date Recorded [...] asthma without complication documented in this encounter Care Teams Asphalt Mixer Relationship Specialty Start Date End Date Daryl Mayberry MD [address] [place] [address] PCP - General Internal Medicine 10/22/18 documented as of this encounter
--- OUTSIDE RECORDS SUMMARY | 2025-10-20 13:31 | XMS_ITS | Encounter Summary ---
Author Organization [employer] Address [address] [place] [address] [address] [place] [address] Care Team Providers Care Retail Service Specialist Name Role Phone Daryl Mayberry MD Primary Care Provider [phone]- [phone] Reason for Visit * Reason Comments Med Refill Encounter Details Date Type Department Care Team (Late st Contact Info) Description 12/26/2022 Refill [facility] [address] [place], [place] [phone] Daryl Mayberry MD [address] [place], [place] [phone] Social History Tobacco Use Types Packs/Day Years [...] Diagnoses Not on filedocumented in this encounter Care Teams Retail Service Specialist Relationship Specialty Start Date End Date Daryl Mayberry MD [address] [place] [address] PCP - General Internal Medicine 10/22/18 documented as of this encounter
--- OUTSIDE RECORDS SUMMARY | 2025-10-20 13:31 | XMS_ITS | Encounter Summary ---
Author Organization [employer] Address [address] [facility] 7 [place] [address] Care Team Providers Care Inspector Filter Tip Name Role Phone Daryl Mayberry MD Primary Care Provider [phone] Reason for Visit * Reason Comments Med Refill Encounter Details Date Type Department Care Team ([facility] st Contact Info) Description 08/05/2025 Refill [facility] CHC MED & PEDS [address] [place], [place] [phone] Daryl Mayberry MD 505 [place] [address] Moderate persistent asthma without complication Social History [...] documented as of this encounter Care Teams Inspector Filter Tip Relationship Specialty Start Date End Date Daryl Mayberry MD [address] [place] [id number] PCP - General Internal Medicine 10/22/18 documented as of this encounter
--- OUTSIDE RECORDS SUMMARY | 2025-10-20 13:31 | XMS_ITS | Encounter Summary ---
Author Organization [employer] Address [address] [place] [address] 7 [place] [address] Care Team Providers Care Enterprise Engineer Name Role Phone Daryl Mayberry MD Primary Care Provider [phone] Encounter Details Date Type Department Care Team (Latest Contact Info) Description 06/22/2023 Orders Only [facility] CHC MED & PEDS [address] [place], [place] [phone] Daryl Mayberry MD 505 [place], [place] [phone] Hypercholesterolemia (Primary Dx) Social History Tobacco Use Types Packs/Day Years Used Date Smoking Tobacco: Former Cigarettes Smokeless Tobacco: Current Chew Alcohol Use Standard Drinks/Week Comments Not Currently 0 (1 standard drink = 0.6 oz pur e alcohol) Depression Answer Date Recorded Patient Health Questionnaire-9 Score 18 06/20/2023 Depression Answer Date Recorded Patient Health Questionnaire-2 [...] as of this encounter Visit Diagnoses Diagnosis Hypercholesterolemia- Primary Pure hypercholesterolemia documented in this encounter Additional Health Concerns Assessment Noted Time PHQ-9 Depression Total Score: 18 06/20/ 023 11:12 AM EDT documented as of this encounter Care Teams Enterprise Engineer Relationship Specialty Start Date End Date Daryl Mayberry MD 505 [place], [place] [phone] PCP - General Internal Medicine 10/22/18 documented as of this encounter
--- OUTSIDE RECORDS SUMMARY | 2025-10-20 13:31 | XMS_ITS | Encounter Summary ---
Author Organization [employer] Address [address] [place] [address] 7 [place] [address] Care Team Providers Care Remediation Bioanalytics Consultant Name Role Phone Daryl Mayberry MD Primary Care Provider [phone] Reason for Visit * Reason Comments Med Refill Encounter Details Date Type Department Care Team ([facility] st Contact Info) Description 12/13/2022 Telephone [facility] MED & PEDS [address] [place], [place] [phone] Daryl Mayberry MD 505 [place] [address] Med Refill Social History Tobacco Use Types Packs/Day Years Used Date Smoking Tobacco: Never Assessed Sex and Gender Information Value Date Recorded Sex Assigned at Male 08/21/2022 10:16 AM EDT Legal Sex Male 10:16 AM EDT Gender Identity Male 08/21/2022 10:16 AM EDT Sexual Orientation Straight 08/21/2022 10 :16 AM EDT documented as of this encounter Miscellaneous Notes * Telephone Encounter - Tamela Ybarra RN - 12/13/2022 4:06 PM EST Call to pt and pt informed. States he does not have insurance at this time. Inquiring on what the cost will be to complete the lab. RN advised unsure but recommended pt meet with insurance enrollmentstaff at [facility] in the morning to discuss/set up insurance. Pt agrees. Per pt, is upset because he hasbeen on these meds for over 5 years. Does not understand why he needs to complete the labs now. Perpt, was paying for Rx out of pocket. States he will follow up with [facility] in [facility] on Sunday. Will forward to PCP to inform. * Telephone Encounter - Daryl Mayberry MD - 12/13/2022 3:46 PM EST Unable to prescribe. These medication can cause Electrolyte disturbances. Pt will need his blood work and a follow up to get a refill of these medications. documented in this encounter Plan of Treatment Not on file documented as of this encounter Procedures Procedure Name Priority Date/Time Associated Diagnosis Comments BASIC METABOLIC PANEL Routine 03/21/2023 8:55 AM EDT Essential hypertension documented in this encounter Results * (ABNORMAL) Basic Metabolic Panel (03/21/2023 8:55 AM EDT) Glucose 108(H) 65 - 99 mg/dL [facility] Comment: Fasting reference interval For someone without known diabetes, a glucose value between 100 and 125 mg/dL is consistent with prediabetes and should be confirmed with a follow-up test. Urea Nitrogen (BUN) 19 7 - 25 mg/dL [facility] [place] [facility] Creatinine, Serum 1.06 0.70 - 1.30 mg/dL [facility] eGFR 83 > OR = 60 mL/min/1 .73m2 [facility] [place] [facility] Comment: The eGFR is based on the CKD-EPI 2020 equation. To calculate the new eGFR from a previous Creatinine or Cystatin C result, go to https://www.kidney.org/professionals/ kdoqi/gfr%5Fcalculator BUN/Creatinine Ratio NOT APPLICABLE 6 - 22 (calc) [facility] Sodium 135 135 - 146 mmol/L [facility] [place] [facility] Potassium 4.0 3.5 - 5.3 mmol/L [facility] Chloride 98 98 - 110 mmol/L [facility] Carbon Dioxide 27 20 - 32 mmol/L [facility] Calcium 9.5 8.6 - 10.3 mg/dL [facility] Blood Venous blood specimen / Unknown 03/21/2023 8:55 AM EDT 03/21/2023 8:56 AM EDT Daryl Mayberry MD LAB BLOOD ORDERABLES Final Result [facility] [address], [place] [address] [facility] [address] [place] [address] documented in this encounter Visit Diagnoses Diagnosis Essential hypertension- Primary Unspecified essential hypertension documented in this encounter Care Teams Remediation Bioanalytics Consultant Relationship Specialty Start Date End Date Daryl Mayberry MD [address] [place] [id number] PCP - General Internal Medicine 10/22/18 documented as of this encounter
--- OUTSIDE RECORDS SUMMARY | 2025-10-20 13:31 | XMS_ITS | Encounter Summary ---
Author Organization [employer] Address [address] [facility] 7 [place] [address] Care Team Providers Care Packer Name Role Phone Daryl Mayberry MD Primary Care Provider [phone] Reason for Visit * Reason Comments Med Refill Encounter Details Date Type Department Care Team ([facility] st Contact Info) Description 07/27/2025 Refill [facility] CHC MED & PEDS 505 [place], [place] [phone] Daryl Mayberry MD 505 [place] [address] Moderate persistent asthma without complication Social History [...] documented as of this encounter Care Teams Packer Relationship Specialty Start Date End Date Daryl Mayberry MD [address] [place] [id number] PCP - General Internal Medicine 10/22/18 documented as of this encounter
--- OUTSIDE RECORDS SUMMARY | 2025-10-20 13:31 | XMS_ITS | Encounter Summary ---
Author Organization [employer] Address [address] [place] [address] Care Team Providers Care Bridge Instructor Name Role Phone Daryl Mayberry MD Primary Care Provider [phone] Reason for Visit * Reason Onset Date Comments Appointment Request 04/16/2023 Encounter Details Date Type Department Care Team ([facility] st Contact Info) Description 04/16/2023 Telephone [facility] CHC MED & PEDS [address] [place], [place] [phone] Daryl Mayberry MD 505 [place] [address] Appointment Request Social History Tobacco Use Types Packs/Day Years Used Date Smoking Tobacco: Never Assessed Sex and Gender Information Value Date Recorded Sex Assigned at Male 08/21/2022 10:16 AM EDT Legal Sex Male 10:16 AM EDT Gender Identity Male 08/21/2022 10:16 AM EDT Sexual Orientation Straight 08/21/2022 10 :16 AM EDT documented as of this encounter Miscellaneous Notes * Telephone Encounter - Joseph Rosas - 04/16/2023 8:05 AM EDT Tc from pt requesting to r/s appt for 04/16/2023 for low back pain, and other chronic concerns. Please contact pt at [phone] documented in this encounter Plan of Treatment Not on file documented as of this encounter Visit Diagnoses Not on filedocumented in this encounter Care Teams Bridge Instructor Relationship Specialty Start Date End Date Daryl Mayberry MD [address] [place] [id number] PCP - General Internal Medicine 10/22/18 documented as of this encounter
--- OUTSIDE RECORDS SUMMARY | 2025-10-20 13:31 | XMS_ITS | Encounter Summary ---
Author Organization [employer] Address [address] [place] [address] 7 [place] [address] Care Team Providers Care Microscopist Name Role Phone Daryl Mayberry MD Primary Care Provider [phone] Reason for Visit * Reason Comments Med Refill Encounter Details Date Type Department Care Team (Late st Contact Info) Description 12/29/2022 Refill [facility] MEDICINE [address] [place], [place] [phone] Daryl Mayberry MD [address] [place], [place] [phone] Essential hypertension (Primary Dx) Social History Tobacco Use Types [...] as of this encounter Visit Diagnoses Diagnosis Essential hypertension- Primary Unspecified essential hypertension documented in this encounter Care Teams Microscopist Relationship Specialty Start Date End Date Daryl Mayberry MD [address] [place] [address] PCP - General Internal Medicine 10/22/18 documented as of this encounter
--- OUTSIDE RECORDS SUMMARY | 2025-10-20 13:31 | XMS_ITS | Clinical Summary ---
Author Organization [facility] Address [address] [place] [address] Phone Care Team Providers Care Diamond Polisher Name Role Phone Daryl Mayberry MD Primary Care Pr ovider Allergies No known active allergies Medications albuterol 90 mcg/actuation inhaler Inhale 2 puffs into the lungs every 6 (six) hours as needed for wheezing. Active ipratropium-albu terol (DUONEB) 0.5-2.5 mg/3 mL nebulizer solution 4 (four) times a day. Active LISINOPRIL ORAL Take by mouth. Active HYDROCHLOROTHIAZ VEL ORAL Take by mouth. 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 Not on milton e 02/16/2023 Are you concerned about learning? Not on file 02/16/2023 No 02/16/2023 No 02/16/2023 Digital Access Answer Date Recorded No 03/20/2023 No 03/20/2023 Reliable internet access at home? Not on file 03/20/2023 Device with a working camera? Not on file Intimate Partner Violence Answer Date R ecorded Are you denied basic needs s uch as food, clothing, or medical care? No 09/22/2023 In the past 12 months have y ou been in a relationship with a person who hurts, threatens, or tries to control you? No 09/22/2023 Are you denied basic needs s uch as food, clothing, or medical care? No 09/22/2023 In the past 12 months have y ou been in a relationship with a person who hurts, threatens, or tries to control you? No 09/22/2023 Sex and Gender Information Value Date Recorded Sex Assigned at Male 10/29/2017 9:38 AM EST Legal Sex Male 8:53 AM EST Gender Identity Male 10/29/2017 9:38 AM EST Sexual Orientation Straight 10/29/2017 9: 38 AM EST Last Filed Vital Signs Vital Sign Reading Time Taken Comments Blood Pressure 128/85 09/22/2023 9:16 AM EST Pulse 80 09/22/2023 9:16 AM EST Temperature 36.6 C (97.9 F) 09/22/2023 9:16 AM EST Respiratory Rate 17 09/22/2023 9:16 AM EST Oxygen Saturation 96% 09/22/2023 9:16 AM EST Inhaled Oxygen Concentration - - Weight 113.4 kg (250 lb) 10/13/2018 10:58 AM EST Height 182.9 cm (6') 10/13/2018 10:58 AM EST Body Mass Index 33.91 10/13/2018 10:58 AM EST Plan of Treatment Health Maintenance Due Date Last Done Comments CREATININE LEVEL 1968 LIPID PANEL 1968 POTASSIUM LEVEL 1968 DEPRESSION SCREENING 1980 SMOKING Hx and SMOKELESS TOBACCO SCREENING 1981 HEPATITIS C SCREENING 1986 HIV ONE-TIME SCREENING (18-6 5 YEARS) 1986 COLOGUARD 2013 COLONOSCOPY 2013 COLORECTAL CANCER SCREENING 2013 FIT TEST 2013 FOBT 2013 SIGMOIDOSCOPY 2013 VIRTUAL COLONOSCOPY 2013 PNEUMOCOCCAL VACCINES (50+ years) (1 of 1 - PCV) 2018 ZOSTER VACCINES (1 of 2) 2018 INFLUENZA VACCINE (#1) 2025 1, 09/11/2006 COVID-19 VACCINE (1 - 2024-2 6 season) 2025 Adult Td,Tdap Booster 04/11/2026 04/11/2016 , 02/23/2009 RSV VACCINE (1 - 1-dose 75+ series) 2043 HEPATITIS A VACCINES Aged Out No long er eligible based on patient's age to complete this topic HIB VACCINES Aged Out No longer eligi ble based on patient's age to complete this topic MENINGOCOCCAL VACCINES (ACWY) Aged Out No longer eligible based on patient's age to complete this topic MENINGOCOCCAL VACCINES (B) Aged Out N o longer eligible based on patient's age to complete this topic Medical Devices Not on file Care Teams Diamond Polisher Relationship Specialty Start Date End Date Daryl Mayberry MD [address] [place] [id number] PCP - General Internal Medicine 10/13/18 Additional Source Comments The information contained in this document represents components of the legal health record. It is not the complete legal health record.[facility]
== END 2025-10-20 10:13 | disposition home or self-care (01) ==
LOC: HO.HHCX 10:12
PROVIDERS: PCP Student in an Organized Health Care Education/Training Program; Visit Provider Student in an Organized Health Care Education/Training Program
DX: J44.1 Chronic obstructive pulmonary disease with (acute) exacerbation (principal)
CPT/HCPCS: 71046

== ENCOUNTER → 2025-10-20 10:18 | Outpatient (BNV) | payer BC, SELFPAY | PROVIDERS: PCP Student in an Organized Health Care Education/Training Program; Visit Provider Radiology Diagnostic Radiology | DX: J44.9 Chronic obstructive pulmonary disease, unspecified (principal) | CPT/HCPCS: 71046 ==